=== PATIENT | male | born 1965 | race Caucasian/White ===

== ENCOUNTER → 2019-10-26 | Outpatient (CLI) | payer BC ==
[~2019-10-26] MED LIST: ACHD5005 PO; AMOX-355 PO; ASPI-983 PO; HYDR25TA4 PO; LISI40TA PO; METF-399 PO; METO-333 PO; MULT1TAB69 PO; PHEN30CA2 PO; PRAV20TA3 PO; RIVA20TA2 PO; [UNRECOGNIZED DRUG - CODE] PO
--- NOTE | 2019-10-26 16:28 | Diagnostic Imaging Report ---
Indication: Shortness of breath PA and lateral chest Heart size and pulmonary vascularity are normal. Lungs are clear. There are no effusions or pneumothoraces. IMPRESSION: Negative chest Dictated by: Dictated on workstation # [id number]
== END ==
LOC: RAD 15:51
PROVIDERS: ATTEND Nurse Practitioner Family
DX: R50.9 Fever, unspecified (principal); R06.2 Wheezing; R06.02 Shortness of breath
CPT/HCPCS: 71046

== ENCOUNTER → 2023-07-11 | Outpatient (CLI) | payer BC ==
[~2023-07-11] MED LIST changes: +ASPI-1238 PO; -ASPI-983 PO; -LISI40TA PO; +LISI40TA9 PO; +MULT-567 PO; -MULT1TAB69 PO; -PHEN30CA2 PO; +PHEN30CA21 PO
== END ==
LOC: CARD 11:05
PROVIDERS: ATTEND Internal Medicine Cardiovascular Disease
DX: I25.10 Atherosclerotic heart disease of native coronary artery without angina pectoris (principal); I10 Essential (primary) hypertension
CPT/HCPCS: 93306